=== PATIENT | female | born 1995 | race Caucasian/White ===

== ENCOUNTER 2023-11-15 08:28 | Emergency (ER) | payer MEDICAID ==
[~2023-11-15] VITALS: Ht 161.3 cm; Wt 52.0 kg
[2023-11-15 09:01] VITALS: TEMP 98.9
[2023-11-15 09:36] LABS: BASOPHILS % (AUTO) 0.2 % (0-1); EOSINOPHILS % (AUTO) 0.3 % (0-6); HEMATOCRIT 40.2 % (35.0-45.0); HEMOGLOBIN 13.4 g/dl (12.0-16.0); LYMPHOCYTES # (AUTO) 1.8 X10'3 (1.1-4.8); LYMPHOCYTES % (AUTO) 14.3 % (21-51); MEAN CORPUSCULAR HEMOGLOBIN 30.3 PG (27.0-31.0); MEAN CORPUSCULAR HGB CONC 33.3 g/dL (33.0-36.5); MEAN PLATELET VOLUME 7.4 FL (7.4-10.4); MONOCYTES # (AUTO) 2.2 X10'3 (0-0.9); MONOCYTES % (AUTO) 17.7 % (2-12); NEUTROPHILS # (AUTO) 8.5 X10'3 (1.8-7.7); NEUTROPHILS % (AUTO) 67.5 % (42-75); PLATELET COUNT 317 X10'3 (140-440); RED BLOOD COUNT 4.42 X10'6 (4.20-5.60); RED CELL DISTRIBUTION WIDTH 12.7 % (11.5-14.5); WHITE BLOOD COUNT 12.5 X10'3 (4.5-11.0)
[2023-11-15 09:41] LABS: ALANINE AMINOTRANSFERASE 37 U/L (12-78); ALBUMIN 3.5 G/DL (3.4-5.0); ALBUMIN/GLOBULIN RATIO 0.8 (1.1-1.5); ALKALINE PHOSPHATASE 86 IU/L (46-116); ANION GAP 6 (8-16); ASPARTATE AMINO TRANSFERASE 18 U/L (10-37); BILIRUBIN,TOTAL 0.4 MG/DL (0.1-1.0); BLOOD UREA NITROGEN 9 MG/DL (7-18); BUN/CREATININE RATIO 12.2 (10.0-20.0); CALCIUM 9.5 MG/DL (8.5-10.1); CHLORIDE 101 MMOL/L (99-107); CREATININE 0.74 MG/DL (0.40-0.90); GLUCOSE 99 MG/DL (70-104); LIPASE 20 U/L (16-77); POTASSIUM 3.5 MMOL/L (3.5-5.1); SODIUM 139 MMOL/L (135-145); TOTAL CARBON DIOXIDE 32.2 MMOL/L (24-32); eCRCL 94 ML/MIN; eGFR > 90 ML/MIN
[2023-11-15 09:46] LABS: BILIRUBIN,URINE NEGATIVE (Neg); CLARITY,URINE CLOUDY (Clear); COLOR,URINE YELLOW (Yellow); GLUCOSE, URINE NEGATIVE (Neg); KETONES,URINE NEGATIVE (Neg); LEUKOCYTE ESTERASE ,URINE MODERATE (Neg); NITRITES, URINE POSITIVE (Neg); OCCULT BLOOD,URINE SMALL (Neg); PH,URINE 6.5 (4.8-8.0); PROTEIN,URINE TRACE mg/dl (Neg); UROBILINOGEN,URINE 0.2 E.U/dL (0.2-1.0)
[2023-11-15 09:47] LABS: UA COLLECTION TYPE CLN CATCH MIDSTREAM; URINE HCG NEGATIVE (NEG)
[2023-11-15 09:52] LABS: BACTERIA,URINE 4+ /HPF (Neg); MUCUS STRANDS NONE SEEN /LPF (Neg); SQUAMOUS EPITHELIAL CELL,UR FEW /LPF (FEW); WBC CLUMPS,URINE MODERATE /HPF (NEGATIVE); WBC,URINE TNTC /HPF (0-4)
[2023-11-15 10:25] VITALS: BP 124/64; PULSE 76; O2SAT 100
[2023-11-15 11:05] VITALS: RESP 16
[2023-11-15] MEDS: CefTRIAXone 1000mg IM Kit (w/lidocaine diluent) IM ONE (11:05)
[2023-11-15] MEDS: ketorolac trometh. 30mg/ml inj. IM ONE (11:05)
[2023-11-15] MEDS: ondansetron 4mg rapidly disintigrating tab PO ONE (11:06)
[2023-11-15 11:10] LABS: TOTAL CELLS COUNTED 100
[2023-11-15 11:11] LABS: PLATELET ESTIMATE NORMAL
[2023-11-15] MEDS ORDERED: ONDA-245 PO (11:11)
[2023-11-15] MEDS ORDERED: SULF1TAB49 PO (11:11)
[2023-11-15] MEDS ORDERED: NAPR-56 PO (11:11)
== END 2023-11-15 13:18 | disposition home or self-care (01) ==
LOC: ER 08:28 → EDUNIT# 08:28 → ER 13:18
DX: N12 Tubulo-interstitial nephritis, not specified as acute or chronic (principal); Z79.899 Other long term (current) drug therapy; Z79.1 Long term (current) use of non-steroidal anti-inflammatories (NSAID)
CPT/HCPCS: 36415; 80053; 81001; 81025; 83690; 85007; 85025; 87077; 87088; 87186; 96372; 99284; J0696; J1885